=== PATIENT | female | born 1975 | race Caucasian/White ===

== ENCOUNTER 2019-05-08 01:40 | Emergency (ER) | payer BC ==
[2019-05-08] MEDS ORDERED: NORMAL SALINE 1000 ML 1,000 ML IV ONE (02:05)
[2019-05-08 02:43] LABS: ABSOLUTE BASOPHILS # (AUTO) 0.1 10^3/uL (0.0-0.2); ABSOLUTE EOSINOPHILS # (AUTO) 0.2 10^3/uL (0.0-0.6); ABSOLUTE LYMPHOCYTES (AUTO) 2.7 10^3/uL (0.5-4.7); ABSOLUTE MONOCYTES (AUTO) 0.5 10^3/uL (0.1-1.4); ABSOLUTE NEUT (AUTO) 4.6 10^3/uL (1.7-8.2); EOSINOPHILS % (AUTO) 1.9 % (0-6); HEMATOCRIT 34.1 % (36.0-47.0); HEMOGLOBIN 11.2 g/dL (12.0-15.5); LYMPHOCYTES % (AUTO) 33.6 % (13-45); MEAN CORPUSCULAR HEMOGLOBIN 27.3 pg (27.0-33.4); MEAN CORPUSCULAR HGB CONC 32.9 g/dL (32.0-36.0); MEAN CORPUSCULAR VOLUME 83 fl (80-97); MONOCYTES % (AUTO) 6.5 % (3-13); PLATELET COUNT 285 10^3/uL (150-450); RED BLOOD COUNT 4.12 10^6/uL (3.72-5.28); RED CELL DISTRIBUTION WIDTH 16.2 % (11.5-14.0); TOTAL CELLS COUNTED % (AUTO) 100 %; WHITE BLOOD COUNT 8.1 10^3/uL (4.0-10.5)
[2019-05-08] MEDS ORDERED: KETOROLAC TROMETHAMINE 60 MG/2 ML SDV IM ONE (02:45)
[2019-05-08] MEDS ORDERED: KETOROLAC TROMETHAMINE INJ/PF 30 MG/1 ML SDV IV ONE (02:59)
[2019-05-08 03:00] LABS: ALBUMIN 4.1 g/dL (3.5-5.0); ALKALINE PHOSPHATASE 61 U/L (38-126); ANION GAP 9 (5-19); ASPARTATE AMINO TRANSFERASE 14 U/L (14-36); BILIRUBIN,DIRECT 0.1 mg/dL (0.0-0.4); BILIRUBIN,TOTAL 0.3 mg/dL (0.2-1.3); BLOOD UREA NITROGEN 11 mg/dL (7-20); CALCIUM 9.5 mg/dL (8.4-10.2); CARBON DIOXIDE 23 mmol/L (22-30); CHLORIDE 105 mmol/L (98-107); GLUCOSE 136 mg/dL (75-110); POTASSIUM 4.5 mmol/L (3.6-5.0); TOTAL PROTEIN 7.1 g/dL (6.3-8.2)
--- NOTE | 2019-05-08 04:33 | RADIOLOGY REPORT (SQ) ---
EXAM DESCRIPTION: US TRANSVAGINAL COMPLETED DATE/TME: 05/08/2019 02:43 CLINICAL HISTORY: 43 years, Female, vaginal bleeding COMPARISON: 05/06/2019 ultrasound TECHNIQUE: Transvaginal sonographic images in a first trimester patient LIMITATIONS: None. FINDINGS: The uterus measures 11.4 x 6.0 x 5.7 cm. There is a 3.8 x 3.8 cm uterine fibroid in the fundal region. There is a somewhat irregular shaped intrauterine gestational sac. No yolk sac or pole. No detectable heart tones. Current ultrasound age is 6 weeks 2 days. Cervical length is 2.8 cm. The ovaries are not well seen due to bowel gas and patient body habitus. No free fluid IMPRESSION: Irregular shaped intrauterine gestational sac, as above. There is no pole or yolk sac at this time. Findings are concerning for blighted ovum or anembryonic . However close obstetric follow-up recommended. Short-term follow-up ultrasound may also be of benefit copyright 2011 [employer]- All Rights Reserved
[2019-05-08 06:55] VITALS: BP 124/72
--- NOTE | 2019-05-08 07:08 | ER Document Report ---
ED General - General Chief Complaint: OB Problem (<20wks) Stated Complaint: HEAVY BLEEDING Time Seen by Provider: 05/08/19 02:03 Notes: Patient is a 43-year-old female G7, P2 currently presents to the emergency department for vaginal bleeding. States she was here recently. States she thought she was 10 weeks of gestation. States ultrasound showed she was only 6 weeks gestation and there was no cardiac activity for the baby. Sta fredy she was told to follow-up with [facility]. States she does have an appointment with them on Sunday. Patient voices tonight around 0015 she started with vaginal bleeding. States she was passing large clots which is why she presents to the emergency room. Patient voices she feels overall lightheaded and dizzy. Patient's denying any syncopal episodes. TRAVEL OUTSIDE OF THE [place] IN LAST 30 DAYS: No - Related Data Allergies/Adverse Reactions: codeine Allergy (Verified 05/06/19 15:23) shellfish derived Allergy (Verified 05/06/19 15:23) Past Medical History - General Information source: Patient - Social History Smoking Status: Unknown if Ever Smoked Family History: Reviewed & Not Pertinent Patient has suicidal ideation: No Patient has homicidal ideation: No - Past Medical History Cardiac Medical History: Reports: Hx Hypertension Pulmonary Medical History: Reports: Hx Asthma Endocrine Medical History: Reports: Hx Diabetes Mellitus Type 2 Past Surgical History: Reports: Hx Gynecologic Surgery - D &C x2, Hx Tonsillectomy Review of Systems - Review of Systems Constitutional: denies: Fever EENT: No symptoms reported Cardiovascular: No symptoms reported Respiratory: No symptoms reported Gastrointestinal: See HPI Genitourinary: No symptoms reported Female Genitourinary: See HPI Musculoskeletal: No symptoms reported Skin: See HPI Hematologic/Lymphatic: See HPI Neurological/Psychological: See HPI Physical Exam - Vital signs Vitals: Temp Pulse Resp BP Pulse Ox 98 F 80 16 142/79 H 100 05/08/19 01:44 05/08/19 01:44 05/08/19 01:44 05/08/19 01:44 05/08/19 01:44 - Notes Notes: GENERAL: Alert, interacts well. Pallor noted, patient passing blood clots while standing. HEAD: Normocephalic, atraumatic. EYES: Pupils equal, round, and reactive to light. Extraocular movements intact. ENT: Oral mucosa moist, tongue midline. NECK: Full range of motion. Supple. Trachea midline. LUNGS: Clear to auscultation bilaterally, no wheezes, rales, or rhonchi. No respiratory distress. HEART: Tachycardic r rate and rhythm. No murmur ABDOMEN: Soft, slight tenderness noted bilateral pelvic region. Non-distended. Bowel sounds present in all 4 quadrants. EXTREMITIES: Moves all 4 extremities spontaneously. No edema, normal radial and dorsalis pedis pulses bilaterally. No cyanosis. BACK: no cervical, thoracic, lumbar midline tenderness. No saddle anesthesia, normal distal neurovascular exam. NEUROLOGICAL: Alert and oriented x3. Normal speech. cranial nerves II through XII grossly intact. PSYCH: Normal affect, normal mood. SKIN: Warm, dry, normal turgor. No rashes or lesions noted. Course - Re-evaluation Re-evalutation: Laboratory 05/08/19 05/08/19 05/08/19 02:20 02:20 02:20 WBC 8.1 RBC 4.12 Hgb 11.2 L Hct 34.1 L MCV 83 MCH 27.3 MCHC 32.9 RDW 16.2 H Plt Count 285 Lymph % (Auto) 33.6 [place] % (Auto) 6.5 Eos % (Auto) 1.9 Baso % (Auto) 1.0 Absolute Neuts (auto) 4.6 Absolute Lymphs (auto) 2.7 Absolute Monos (auto) 0.5 Absolute Eos (auto) 0.2 Absolute Basos (auto) 0.1 Seg Neutrophils % 57.0 Sodium 136.6 L Potassium 4.5 Chloride 105 Carbon Dioxide 23 Anion Gap 9 BUN 11 Creatinine 0.54 Est GFR ( Amer) > 60 Est GFR (MDRD) Non-Af > 60 Glucose 136 H Calcium 9.5 Total Bilirubin 0.3 Direct Bilirubin 0.1 Neonat Total Bilirubin Not Reportable Neonat Direct Bilirubin Not Reportable Neonat Indirect Bili Not Reportable AST 14 ALT 13 Alkaline Phosphatase 61 Total Protein 7.1 Albumin 4.1 Beta HCG, Quant Total Beta HCG Blood Type O POSITIVE Antibody Screen NEGATIVE 05/08/19 02:20 WBC RBC Hgb Hct MCV MCH MCHC RDW Plt Count Lymph % (Auto) [place] % (Auto) Eos % (Auto) Baso % (Auto) Absolute Neuts (auto) Absolute Lymphs (auto) Absolute Monos (auto) Absolute Eos (auto) Absolute Basos (auto) Seg Neutrophils % Sodium Potassium Chloride Carbon Dioxide Anion Gap BUN Creatinine Est GFR ( Amer) Est GFR (MDRD) Non-Af Glucose Calcium Total Bilirubin Direct Bilirubin Neonat Total Bilirubin Neonat Direct Bilirubin Neonat Indirect Bili AST ALT Alkaline Phosphatase Total Protein Albumin Beta HCG, Quant 7509.80 H Total Beta HCG POSITIVE Blood Type Antibody Screen Patient initially presents to the emergency department having a potential miscarriage. There was one specific blood clot that could have been part of fetus. It was collected and sent to the lab.\ Initial pelvic exam reveals copious amounts of blood in the cul-de-sac with blood clots. I am unable to visualize the office. In reviewing this case with my attending Dr. Lozano. He states that if the patient continued to be non-tachycardic, non-hypotensive she can follow-up outpatient with [facility]. Patient's beta-hCG is clearly downtrending from recent visit. Hemoglobin stable. Patient has stood up got dressed by herself. Patient has had color return to her face. She remains non-tachycardic. Voices she only had a slight amount of bleeding noted when she stood up. I discussed with patient and significant other in the room close return precautions. I have also discussed they should call [facility] to get a sooner appointment on Sunday. Patient voices understanding, stable for discharge. - Vital Signs Vital signs: Temp Pulse Resp BP Pulse Ox 98.3 F 80 14 124/72 98 05/08/19 06:50 05/08/19 01:44 05/08/19 06:48 05/08/19 06:48 05/08/19 06:48 - Laboratory Result Diagrams: 05/08/19 02:20 05/08/19 02:20 Laboratory results interpreted by me: 05/08/19 05/08/19 05/08/19 02:20 02:20 02:20 Hgb 11.2 L Hct 34.1 L RDW 16.2 H Sodium 136.6 L Glucose 136 H Beta HCG, Quant 7509.80 H Discharge - Discharge Clinical Impression: Incomplete miscarriage with blood clot Condition: Stable Disposition: HOME, SELF-CARE Instructions: Miscarriage Impending ([facility]) Additional Instructions: As we discussed you have been seen and treated in the emergency department for an impending miscarriage. Your beta hCG levels are downtrending. You should call your [facility]NA[facility] to make an appointment sooner than Sunday. Please return to the emergency department should you have continued excessive vaginal bleeding, get lightheaded, dizzy, weak, pass out, have any other concerns. Prescriptions: Ketorolac Tromethamine [Toradol 10 mg Tablet] 10 mg PO Q8HP PRN #24 tablet PRN Reason:
== END 2019-05-08 07:40 | disposition home or self-care (01) ==
LOC: ER 01:40
DX: O03.4 Incomplete spontaneous abortion without complication (principal); R42 Dizziness and giddiness; R00.0 Tachycardia, unspecified; I10 Essential (primary) hypertension; J45.909 Unspecified asthma, uncomplicated; E11.9 Type 2 diabetes mellitus without complications; Z88.5 Allergy status to narcotic agent; Z91.013 Allergy to seafood
CPT/HCPCS: 86900; 86901; 36415; 86850; 84702; 85025; 80053; 88305 ×2; 76817; 93976; J1885; J7030; 96361; 96374; 99284